=== PATIENT | male | born 1990 | race Hispanic/Latino ===

== ENCOUNTER 2022-10-17 01:01 | Emergency (ER) | payer SELFPAY ==
--- NOTE | ~2022-10-17 | XR_ITS ---
Portable chest x-ray Comparison: None Clinical History: Dyspnea, overdose Findings: Lungs are clear, without focal consolidation or pleural effusion. Cardiomediastinal silho uette is unremarkable. Bones and soft tissues are unremarkable. Impression: Clear lungs. Reviewed, dictated and finalized at location M. [employer]NIC[employer] Impression: Clear lungs.
[2022-10-17 01:12] VITALS: BP 139/84; PULSE 123; RESP 18; TEMP 36.4; O2SAT 99
[2022-10-17 01:24] VITALS: PULSE 118
[2022-10-17 01:29] VITALS: BP 120/90; PULSE 109; RESP 13; O2SAT 96
[2022-10-17 01:37] VITALS: PULSE 107; RESP 16; O2SAT 97
[2022-10-17 01:47] VITALS: PULSE 105; RESP 16
--- NOTE | 2022-10-17 02:30 | ED.GENADULT ---
HPI - General Adult General Chief complaint: Overdose Stated complaint: overdose Time Seen by Provider: 10/17/22 01:09 Source: family and RN notes reviewed History of Present Illness HPI narrative: Patient presents emergency department for overdose. History is per the patient's girlfriend who is present. She states that they went to a gas station this evening the patient by some drugs she is unsure what it was that he took them and then he became unresponsive. The patient currently arrived at triage unresponsive with agonal respirations he was immediately rushed back to room #8 and was moved to the bed from the wheelchair by myself and staff patient currently with agonal respirations nonverbal does not respond to verbal or painful stimuli Review of Systems Review of Systems: ROS unobtainable: Yes unobtainable due to medical condition Exam Narrative: APPEARANCE: Lying in bed unresponsive to verbal and painful stimuli HEENT: Normocephalic, atraumatic, Eyes: Pupils equally round reactive light RESPIRATORY: Agonal respirations with equal breath sounds with BVM CARDIOVASCULAR: Regular rate and rhythm without a murmur ABDOMINAL: Soft, nondistended MUSCULOSKELETAl: No clubbing cyanosis or edema NEURO: Unresponsive to verbal and painful stimuli SKIN:: Cool and dry Course Course Emergency Course: Upon arrival patient immediately moved to bed a IV was started in the left arm and patient was given 2 of Narcan patient had immediate response and did awaken. Now awake and alert x4 he does not recall anything of what he did the gas station but thought he was buying cocaine he states he does do cocaine he is agreeable to stay for observation Patient remained monitored in the emergency department for over 3 and half hours. Patient remained awake and alert x3 with no further episodes of hypoxia I discussed with the patient need to cease drug use all questions answered in agreement Discussed with patient results of workup and diagnosis. Discussed need for follow-up with primary care, proper use of medication, and reasons to return to the emergency department. Patient understands and agrees to current treatment plan Vital Signs Vital signs: Vital Signs Temperature 97.5 F L 10/17/22 01:12 Pulse Rate 123 H 10/17/22 01:12 Respiratory Rate 18 10/17/22 01:12 Blood Pressure 139/84 10/17/22 01:12 Pulse Oximetry 99 10/17/22 01:12 Oxygen Delivery Room Air 10/17/22 01:12 Temperature 97.5 F L 10/17/22 01:12 Pulse Rate 105 H 10/17/22 01:47 Respiratory Rate 16 10/17/22 01:47 Blood Pressure 120/90 10/17/22 01:29 Pulse Oximetry 97 10/17/22 01:37 Oxygen Delivery Room Air 10/17/22 01:12 Medical Decision Making MDM Narrative Medical decision making narrative: Patient presented for unknown substance ingestion altered mental status upon arrival with agonal breathing. Moved to bed and Narcan given with immediate improvement in mental status the patient remained awake and alert since that time he was observed for over 3 hours no further episodes of hypoxia will discharge at this time with follow-up as an outpatient Vital Signs Vital Signs: Vital Signs Temperature 97.5 F L 10/17/22 01:12 Pulse Rate 123 H 10/17/22 01:12 Respiratory Rate 18 10/17/22 01:12 Blood Pressure 139/84 10/17/22 01:12 Pulse Oximetry 99 10/17/22 01:12 Oxygen Delivery Room Air 10/17/22 01:12 Temperature 97.5 F L 10/17/22 01:12 Pulse Rate 105 H 10/17/22 01:47 Respiratory Rate 16 10/17/22 01:47 Blood Pressure 120/90 10/17/22 01:29 Pulse Oximetry 97 10/17/22 01:37 Oxygen Delivery Room Air 10/17/22 01:12 Imaging Data Attestation: I personally reviewed and interpreted this imaging study as follows: My impression: Chest x-ray reviewed myself shows no acute process Critical Care Time Critical Care Time Critical Care Time: Yes Total Critical Care Time: 35 Discharge Plan Discharge Clinical Impression:
[2022-10-17 05:10] VITALS: BP 123/79; PULSE 90; RESP 18; TEMP 36.6; O2SAT 99
== END 2022-10-17 05:12 | disposition home or self-care (01) ==
PROVIDERS: Emergency Provider Emergency Medicine
DX: T40.2X1A Poisoning by other opioids, accidental (unintentional), initial encounter (principal)
CPT/HCPCS: 71045; 99284; J2310; J7030